=== PATIENT | female | born 1985 | race African-American/Black ===

== ENCOUNTER 2020-01-10 10:09 | Emergency (ER) | payer OTHER ==
[2020-01-12 12:09] LABS: SARS-CoV-2 MS2 Positive; SARS-CoV-2 N Gene Negative; SARS-CoV-2 S Gene Negative; SARS-CoV-2 orf1ab Negative
== END 2020-01-10 10:39 | disposition home or self-care (01) ==
LOC: ERS 10:09
DX: R05 Cough (principal); R19.7 Diarrhea, unspecified; R51 Headache; R06.02 Shortness of breath; Z20.828 Contact with and (suspected) exposure to other viral communicable diseases; J45.909 Unspecified asthma, uncomplicated
CPT/HCPCS: 87635; 99284; U0003

== ENCOUNTER 2021-01-13 11:45 | Emergency (ER) | payer OTHER | END 2021-01-13 14:47 | disposition left against medical advice (07) | LOC: ERS 11:45 | DX: Z53.21 Procedure and treatment not carried out due to patient leaving prior to being seen by health care provider (principal) ==